=== PATIENT | female | born 1960 | race Caucasian/White ===

== ENCOUNTER 2017-09-23 12:56 | Emergency (ER) | payer SELFPAY ==
[~2017-09-23] VITALS: Ht 162.6 cm; Wt 84.0 kg
[2017-09-23 13:16] VITALS: BP 126/74; PULSE 71; RESP 20; TEMP 98; O2SAT 93
[2017-09-23] MEDS ORDERED: IPRAAER INH (13:35)
[2017-09-23] MEDS ORDERED: IBUP-232 PO (13:35)
[2017-09-23] MEDS ORDERED: CLIN300C5 PO (13:52)
[2017-09-23] MEDS ORDERED: PERM5CRE TOPICAL (13:52)
--- NOTE | 2017-09-23 13:59 | PD ---
HPI Chief Complaint: Skin Problem Time Seen by Provider: 13:26 Travel History International Travel<30 days: No Contact w/Intl Traveler<30days: No Traveled to known affect area: No History of Present Illness HPI 56-year-old female presents to the emergency room for evaluation of itchy rash to her body for the past several days. Patient states the rash has been spreading. States it starts off as small, little red bumps that are extremely itchy. After she scratches them they become blisters and if she continues to scratch them the blisters pop and get infected and painful. She denies any fever, chills, nausea, vomiting. States she has had ulcerations on her skin previously from ibuprofen and she has been taking ibuprofen recently for dental pain. She is unsure if the ibuprofen is causing the symptoms. She was also informed that it may be bedbugs. Nobody in the house has similar symptoms. PFSH Social History Tobacco Use: No Allergies-Medications (Allergen,Severity, Reaction): Coded Allergies: ibuprofen (Verified Allergy, Severe, 09/23/17) SKIN BLISTERS Reported Meds & Prescriptions Reported Meds & Active Scripts Active Vistaril (Hydroxyzine Pamoate) 50 Mg Cap 50 Mg PO TID 7 Days Permethrin Topical 5% (Permethrin) 5% Cream 1 Applic TOPICAL ONCE Clindamycin (Clindamycin HCl) 300 Mg Cap 300 Mg PO Q6H 10 Days Reported Ibuprofen 600 Mg Tab 600 Mg PO DIRECTED PRN Combivent Respimat Inh (Ipratropium-Albuterol Inh) 20-100 Custodial/Act Aero 1 Puff INH QID Review of Systems Except as stated in HPI: all other systems reviewed are Neg Physical Exam Narrative GENERAL: Well-nourished, well-developed female in no acute distress. Afebrile. Ambulatory. SKIN: Focused skin assessment warm/dry. Multiple lesions of varying stages and sizes throughout the body especially in the upper and lower extremities. There are several vesicles and fluid-filled blisters. She also has significant swelling of the right lower lid from 1 of the lesions. Positive breakfast, lunch, dinner sign. HEAD: Normocephalic. EYES: No scleral icterus. No injection or drainage. No proptosis. EOMI without pain. NECK: Supple, trachea midline. No JVD or lymphadenopathy. CARDIOVASCULAR: Regular rate and rhythm without murmurs, gallops, or rubs. RESPIRATORY: Breath sounds equal bilaterally. No accessory muscle use. PSYCHIATRIC: No delusional thought processes. No hallucinations. Data Data Last Documented VS Vital Signs Date Time Temp Pulse Resp B/P (MAP) Pulse Ox O2 Delivery O2 Flow Rate FiO2 09/23/17 13:16 98.0 71 20 126/74 (91) 93 Orders Orders Dexamethasone Inj (Decadron Inj) (09/23/17 14:00) Hydroxyzine Pamoate (Vistaril) (09/23/17 14:00) Clindamycin (Cleocin) (09/23/17 14:00) [facility] Medical Decision Making Medical Screen Exam Complete: Yes Emergency Medical Condition: Yes Medical Record Reviewed: Yes Differential Diagnosis Acute rash, scabies, insect bites Narrative Course 56-year-old female presents to the emergency room for evaluation of itchy rash to her bilateral upper and lower extremities for the past several days. Symptoms are mostly on the wrists and ankles. She has positive breakfast, lunch , dinner sign. I suspect allergic reaction to scabies. Patient given Decadron , Vistaril, and clindamycin in the emergency room and will be discharged with prescription for permethrin cream. A few of the wounds appear to be infected from scratching. Patient will be covered with clindamycin because 1 of the swollen hives/bites is on her right lower lid. Told to follow-up with a primary care physician or return for worsening symptoms. She understands and agrees to plan. Diagnosis Primary Impression: Acute maculopapular rash Referrals: Primary Care Physician Additional Instructions: Clindamycin as directed, until gone. Apply cream to the entire body before bed. Leave on overnight. Wash off in the morning. Repeat in 1 week. Wash all sheets in hot water. Follow-up with primary care physician. Return for worsening symptoms. Med/Other Pt SpecificInfo: Prescription(s) given Scripts Hydroxyzine Pamoate (Vistaril) 50 Mg Cap 50 MG PO TID for 7 Days, CAP 0 Refills Prov: Flaco Ellis MD 09/23/17 Permethrin Topical 5% (Permethrin Topical 5%) 5% Cream 1 APPLIC TOPICAL ONCE for Scabies, #1 TUBE 0 Refills Prov: Flaco Ellis MD 09/23/17 Clindamycin (Clindamycin) 300 Mg Cap 300 MG PO Q6H for Infection for 10 Days, #40 CAP 0 Refills Prov: Flaco Ellis MD 09/23/17 Disposition: 01 DISCHARGE HOME Condition: Stable Lulu Hannon September 23, 2017 13:59
[2017-09-23] MEDS ORDERED: VIST50CA PO (14:00)
[2017-09-23] MEDS ORDERED: DEXAMETHASONE SOD PHOS 4 MG/ML VIAL IM ONE (14:00)
[2017-09-23] MEDS ORDERED: CLINDAMYCIN 150 MG CAP PO ONE (14:00)
== END 2017-09-23 14:20 | disposition home or self-care (01) ==
LOC: NEPK 12:56
DX: R21 Rash and other nonspecific skin eruption (principal)
CPT/HCPCS: 96372; 99283; J1100